=== PATIENT | female | born 1990 | race Caucasian/White ===

== ENCOUNTER → 2019-05-31 | Outpatient (CLI) | payer OTHER ==
--- NOTE | 2019-05-31 11:31 | RADIOLOGY REPORT (SQ) ---
EXAM DESCRIPTION: CT SINUSES FOR ENT COMPLETED DATE/TIME: 05/31/2019 10:33 am REASON FOR STUDY: J33.9 NASAL POLYP, UNSPECIFIED J33.9 NASAL POLYP, UNSPECIFIED COMPARISON: None. TECHNIQUE: Noncontrast scanning through the paranasal sinuses using bone algorithm. Reconstructed MPR images reviewed. All images stored on PACS. All CT scanners at this facility use dose modulation, iterative reconstruction, and/or weight based d osing when appropriate to reduce radiation dose to as low as reasonably achievable (ALARA). [facility]: Dose Right [facility]: CareDose [facility]: Dose Right [facility]: Teradose 4D [facility]: Rollbar RADIATION DOSE: 47mGy. LIMITATIONS: None. FINDINGS: Right sinuses and drainage pathways: Post-surgical changes: None. Frontal sinus: Completely opacified Frontoethmoidal Recess: Opacified with mucous membrane thickening Anterior Ethmoid Sinuses: Completely opacified Posterior Ethmoid Sinuses: Completely opacified Sphenoid Sinus: Mucous membrane thickening right sphenoid sinus Sphenoethmoidal Recess: Opacified with mucous membrane thickening axial image [id number] Maxillary Sinus: Opacified with hyperdense secretions Ostiomeatal Complex: Completely opacified on coronal image 59 Left Sinuses and Drainage Pathways: Post-Surgical Changes: None. Frontal Sinus: Completely opacified Frontoethmoidal Recess: Opacified with mucous membrane thickening Anterior Ethmoid Sinuses: Completely opacified Posterior Ethmoid Sinuses: Completely opacified Sphenoid Sinus: Completely opacified Sphenoethmoidal Recess: Mucous membrane thickening left sphenoid sinus outlet axial image 89 Maxillary Sinus: Opacified with hyperdense secretions Ostiomeatal Complex: Completely opacified on coronal images 56-59 Right Olfactory Fossa: Suspect a polyp in the right nasal cavity axial image 97, coronal image 29 Left Olfactory Fossa: Normal. Middle Turbinate Meaghan Bullosa: None Paradoxical Middle Turbinate: None. Atelectatic Uncinated Process: None. Frontal Tommy Cell Type I: Bilateral. Frontal Tommy Cell Type II: None Interfrontal Sinus Septal Cell: None. Suptra-Orbital Ethmoid: Bilateral. Frontal Bullar Cell: None. Suprabullar Bullar Cell: None. Sphenoethmoidal ([place]) Cell: None. Pneumatization of the Anterior Clinoid Processes: None. Hypoplastic Maxillary Sinus: None. Osteoneogenesis: None. Bone Dehiscence: None. Nasal Cavity: Normal. Nasal Septum: Normal. Anatomic Variants: Right Vidian Canal: Normal Left Vidian Canal: Normal IMPRESSION: Diffuse sinusitis TECHNICAL DOCUMENTATION: JOB ID: [id number] Quality ID # [id number]: Final reports with documentation of one or more dose reduction techniques (e.g., Au tomated exposure control, adjustment of the mA and/or kV according to patient size, use of iterative reconstruction technique) 2010 [employer]- All Rights Reserved Reading location - IP/workstation name: [email or web address]
== END ==
LOC: RAD 09:42
PROVIDERS: ATTEND Otolaryngology
DX: J33.9 Nasal polyp, unspecified (principal)
CPT/HCPCS: 70486